=== PATIENT | female | born 1995 | race American Indian/Alaskan Native ===

== ENCOUNTER 2018-09-17 16:55 | Inpatient (IN) | payer MEDICAID ==
[2018-09-17] MEDS ORDERED: PITOCin/NS 30 UNIT/500ML 30 UNITS/500 ML BAG IV SCH (19:30)
--- NOTE | 2018-09-17 21:18 | Ultrasound Report ---
FINAL REPORT EXAM: US OB BPP WO NON-STRESS HISTORY: non reactive nst TECHNIQUE: Obstetric sonographic imaging was performed Comparison: None FINDINGS: Images demonstrate single live intrauterine gestation in cephalic presentation. Anterior placenta. heart rate measures 145 beats per minute. Biophysical profile score 8/8. Calculated GEORGE 7.9 centimeters. Estimated due date is 09/24/2018 IMPRESSION: Biophysical profile score 8/8. GEORGE 7.9 centimeters. Cephalic presentation. heart rate measures 145 beats per minute.
--- NOTE | 2018-09-17 21:19 | Ultrasound Report ---
FINAL REPORT EXAM: US OB LIMITED HISTORY: non reactive nst TECHNIQUE: Obstetric sonographic imaging was performed Comparison: None FINDINGS: Images demonstrate single live intrauterine gestation in cephalic presentation. Anterior placenta. heart rate measures 145 beats per minute. Biophysical profile score 8/8. Calculated GEORGE 7.9 centimeters. Estimated due date is 09/24/2018 IMPRESSION: Biophysical profile score 8/8. GEORGE 7.9 centimeters. Cephalic presentation. heart rate measures 145 beats per minute.
[2018-09-17] MEDS ORDERED: PITOCin/NS 20 UNIT/1000ML DRIP 20,000 MILLIUNITS/1,000 ML BAG IV ONE ×2 (21:47→23:02)
[2018-09-17 22:05] LABS: Hematocrit 34.9 % (30.3-42.9); Hemoglobin 11.3 gm/dl (10.1-14.3); Mean Corpuscular HGB Conc 32 % (30-34); Mean Corpuscular Volume 71 fl (79-97); Platelet Count 171 K/mm3 (140-440); Red Blood Count 4.91 M/mm3 (3.65-5.03)
[2018-09-17 22:15] LABS: Red Cell Distribution Width 22.3 % (13.2-15.2)
--- NOTE | 2018-09-17 22:26 | History and Physical Report ---
History of Present Illness Date of examination: 09/17/18 Date of admission: 09/17/18 20:20 Chief complaint: contractions History of present illness: 23y/o @ 39+0 weeks presents with irregular contractions and advanced cervical dilation of 6cm. Patient initiated care late @ 22 weeks ega. 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 She denies leakage of fluid. Past History Past Medical History: other (Hgb C trait) Past Surgical History: no surgical history Social history: - Obstetrical History Expected Date of Delivery: 09/24/18 Actual Gestation: 39 Week(s) 0 Day(s) : 5 Para: 4 Hx # Term Pregnancies: 4 Number of Pregnancies: 0 Spontaneous Abortions: 0 Induced : 0 Number of Living Children: 4 Medications and Allergies Allergies Allergy/AdvReac Type Severity Reaction Status Date / Time aspirin Allergy Severe Anaphylaxis Verified 09/17/18 17:10 Home Medications Medication Instructions Recorded Confirmed Last Taken Type Butalb/Acetaminophen/Caffeine 1 each PO Q6H PRN #20 capsule 11/30/14 Unknown Rx [Fioricet 50-300-40 mg Capsule] Ibuprofen [Motrin] 600 mg PO Q8H PRN #30 tablet 11/30/14 Unknown Rx Active Meds: Active Medications Oxytocin/Sodium Chloride (Pitocin/Ns 30 Unit/500ml) 30 units in 500 mls @ 4 mls/hr IV TITR SIERRA; Protocol Review of Systems All systems: negative Genitourinary: contractions, no leakage of fluid - Vital Signs Vital signs: Vital Signs Pulse BP 102 H 101/56 09/17/18 17:09 09/17/18 17:09 Temp Pulse Resp BP Pulse Ox 98.7 F 83 20 120/56 09/17/18 17:11 09/17/18 22:07 09/17/18 17:11 09/17/18 22:07 - Physical Exam Breasts: Positive: deferred Cardiovascular: Regular rate Lungs: Positive: Clear to auscultation Abdomen: Positive: normal appearance Results Result Diagrams: 09/17/18 21:10 Abnormal lab results 09/17/18 Range/Units 21:10 WBC 12.4 H (4.5-11.0) K/mm3 MCV 71 L (79-97) fl MCH 23 L (28-32) pg RDW 22.3 H (13.2-15.2) % All other labs normal. Assessment and Plan - Patient Problems (1) Active labor at term Current Visit: Yes Status: Acute Plan to address problem: admit to L&D
[2018-09-17] MEDS ORDERED: MILK OF MAGNESIA PO PRN (22:30)
[2018-09-17] MEDS ORDERED: BENADRYL PO PRN (22:30)
[2018-09-17] MEDS ORDERED: PHENERGAN PO PRN (22:30)
[2018-09-17] MEDS ORDERED: LANSINOH TP PRN (22:30)
[2018-09-17] MEDS ORDERED: ZOFRAN IV PRN (22:30)
[2018-09-17] MEDS ORDERED: DULCOLAX PR PRN (22:30)
[2018-09-17] MEDS ORDERED: TUCKS PAD TP PRN (22:30)
[2018-09-17] MEDS ORDERED: PHENERGAN PR PRN (22:30)
[2018-09-17] MEDS ORDERED: TYLENOL PO PRN (22:30)
--- NOTE | 2018-09-17 22:30 | Procedure Note ---
OB Delivery Note - Delivery Date of Delivery: 09/17/18 Surgeon: ADRIEL ESTRADA Estimated blood loss: 200cc - Vaginal Delivery presentation: vertex Delivery position: OA Delivery monitor: external FHT Route of delivery: Delivery placenta: spontaneous Delivery cord: 3 umbilical vessels Episiotomy: none Delivery laceration: none Anesthesia: none Delivery comments: Patient progressed to C/C/+2 and pushed to deliver a liveborn male with apgars of 8/9. The delivery was attended by the charge nurse secondary to a precipitous progression. Infant weight of 7lbs 4oz. The placenta delivered spon taneously intact with a 3VC. No lacerations noted. EBL 200ml. - Infant A at 1 minute: 8 at 5 minutes: 9 Gender: Male (weight 7lbs 4oz)
[2018-09-17] MEDS ORDERED: SODIUM CHLORIDE FLUSH SYRINGE 10 ML IV NR (23:00)
[2018-09-18] MEDS: IBUPROFEN PO SCH ×3 (00:27→15:35)
--- NOTE | 2018-09-18 08:08 | Progress Note ---
Assessment and Plan - Patient Problems (1) Active labor at term Current Visit: Yes Status: Acute Plan to address problem: routine care Subjective - Subjective Date of service: 09/18/18 Interval history: Patient reports lochia is decreased and pain is being better controlled Patient reports: appetite normal, voiding normally, pain well controlled [place]: doing well Objective - Vital Signs Latest vital signs: Vital Signs Temp Pulse Resp BP BP 09/18/18 04:00 98.7 F 73 18 117/74 09/18/18 00:30 98.7 F 66 18 101/74 09/17/18 23:22 76 107/55 09/17/18 23:07 90 115/53 09/17/18 22:52 78 115/68 09/17/18 22:37 81 114/61 09/17/18 22:22 83 102/59 09/17/18 22:07 83 120/56 09/17/18 19:49 98 H 120/68 120/68 09/17/18 18:38 100 H 112/67 09/17/18 17:11 98.7 F 102 H 20 101/56 09/17/18 17:09 102 H 101/56 Intake and Output 09/17/18 09/18/18 09/18/18 22:59 06:59 14:59 Intake Total 120 Output Total 950 Balance -830 Intake: Oral 120 Output: Urine 950 Void 950 Other: Total, Intake Amount 120 Total, Output Amount 450 # Voids Void 1 Weight 78.471 kg Estimated Blood Loss 200 - Exam Abdomen: Present: normal appearance, soft - Labs Labs: Abnormal lab results 09/17/18 Range/Units 21:10 WBC 12.4 H (4.5-11.0) K/mm3 MCV 71 L (79-97) fl MCH 23 L (28-32) pg RDW 22.3 H (13.2-15.2) %
[2018-09-18 10:22] LABS: Hematocrit 28.2 % (30.3-42.9); Hemoglobin 9.3 gm/dl (10.1-14.3)
[2018-09-18] MEDS ORDERED: PITOCin/NS 20 UNIT/1000ML DRIP 20 UNITS/1,000 ML BAG IV SCH (21:30)
[2018-09-19] MEDS: IBUPROFEN PO SCH ×2 (00:25→13:15)
--- NOTE | 2018-09-19 08:08 | Progress Note ---
Assessment and Plan PPD2 VSS h/h stable on iron d/c home with f/u in 4 weeks Subjective - Subjective Date of service: 09/19/18 Principal diagnosis: s/p Patient reports: appetite normal, voiding normally, pain well controlled, flat us, ambulating normally : doing well Objective - Vital Signs Latest vital signs: Vital Signs Temp Pulse Resp BP 09/18/18 23:00 98.7 F 64 18 105/78 09/18/18 16:21 98.7 F 96 H 18 106/66 09/18/18 15:35 20 09/18/18 12:30 98.6 F 85 18 87/60 Intake and Output 09/18/18 09/19/18 09/19/18 23:59 07:59 15:59 Intake Total 360 300 Balance 360 300 Intake: Oral 360 Intake, Free Water 300 Other: Total, Intake Amount 360 - Exam Breasts: Present: normal Cardiovascular: Present: Regular rate, Normal S1 Lungs: Present: Clear to auscultation, Normal air movement Abdomen: Present: normal appearance, soft, normal bowel sounds. Absent: distention, tenderness, guarding Vulva: both: normal Uterus: Present: normal, firm, fundal height below umbilicus Extremities: Present: normal Deep Tendon Reflex Grade: Normal +2 - Labs Labs: Abnormal lab results 09/18/18 Range/Units 10:01 Hgb 9.3 L (10.1-14.3) gm/dl Hct 28.2 L D (30.3-42.9) %
--- NOTE | 2018-09-19 08:09 | Discharge Summary ---
Providers - Providers Date of Admission: 09/17/18 20:20 Date of discharge: 09/19/18 Attending physician: ADRIEL ESTRADA Primary care physician: ADRIEL ESTRADA Hospitalization Reason for admission: active labor Delivery: Episiotomy: none Laceration: none Incision: normal Other procedures: none complications: none baby: male Hospital course: patient admitted and endured a . PP did well. discharge home with f/u in 4 weeks Disposition: DC-30 STILL A PATIENT Plan - Discharge Medications Prescriptions: Ferrous Sulfate 325 mg PO BID #60 tablet. Ibuprofen [Motrin] 600 mg PO Q8H PRN #30 tablet PRN Reason: Pain oxyCODONE /ACETAMINOPHEN [Percocet 5/325] 1 tab PO Q6HR PRN #30 tablet PRN Reason: Pain - Provider Discharge Summary Additional instructions: [] Smoking cessation referral if applicable(refer to patient education folder for contact #) [] Refer to [facility] Booklet Call your doctor immediately for: * Fever > 100.5 * Heavy vaginal bleeding ( >1 pad per hour) * Severe persistent headache * Shortness of breath * Reddened, hot, painful area to leg or breast * Drainage or odor from incision. * Keep incision clean and dry at all times and follow doctor's instructions regarding bathing/showering - Follow up plan Follow up: ADRIEL ESTRADA MD [Primary Care Provider] - 7 Days
[2018-09-19 16:09] VITALS: BP 114/75
== END 2018-09-19 17:24 | disposition home or self-care (01) | DRG 775 ==
LOC: TRG 16:55 → LD 20:20 → OB 09-18 00:08
PROVIDERS: ADMIT Obstetrics & Gynecology; ATTEND Obstetrics & Gynecology
PROC: 10E0XZZ Delivery of Products of Conception, External Approach (ICD-10-PCS; principal; 2018-09-17)
DX: O99.52 Diseases of the respiratory system complicating childbirth (principal); J45.909 Unspecified asthma, uncomplicated; Z3A.39 39 weeks gestation of pregnancy; Z37.0 Single live birth; Z88.6 Allergy status to analgesic agent; Z79.899 Other long term (current) drug therapy
CPT/HCPCS: 36415; 59025; 76815; 76819; 85014; 85018; 85027; 86592; 86850; 86900; 86901; G0378; A6250; J2590